=== PATIENT | female | born 1995 | race Caucasian/White ===

== ENCOUNTER 2025-05-28 15:07 | Emergency (ER) | payer SELFPAY ==
[2025-05-28 15:15] VITALS: BP 119/71; PULSE 91; RESP 16; TEMP 36.9; O2SAT 100; BMI 25.7
--- NOTE | 2025-05-28 15:19 | DI.RAD.S_ITS ---
PROCEDURE: XR FOOT RT MIN 3V INDICATIONS: injury/pain/bruising TECHNIQUE: 3 views of the foot were acquired. COMPARISON: None. FINDINGS: Bones: No fractures or dislocations. No suspicious bony lesions. Soft tissues: Distal soft tissue swelling is seen. IMPRESSION: Soft tissue swelling is seen, without an acute bony abnormality seen by plain film. If there is point tenderness (or other clinical suspicion for a fracture not seen on these images) then a dedicated CT or a short-term followup plain film series could be considered for further evaluation, as clinically appropriate. Dictated by: Cesar Martinez M.D. on 05/28/2025 at 14:58 Approved by: Cesar Martinez M.D. on 05/28/2025 at 14:58
[2025-05-28] MEDS: IBUPROFEN 400 MG TABLET 800 MG PO (15:52)
--- NOTE | 2025-05-28 16:09 | ED.LOWEXIN ---
HPI - Extremity Injury (Lower) <Mitchell Zimmer PA-C - Last Filed: 05/28/25 16:19> General Chief Complaint: Extremity Injury, Lower Stated Complaint: Rt foot ankle crushed Time Seen by Provider: 05/28/25 15:48 Source: patient Mode of arrival: Wheelchair History of Present Illness HPI Narrative: 30-year-old female presents to the ED with a right foot injury sustained just prior to arrival. Patient accidentally dropped a gate on a trailer that fell on the top of her right foot. Patient is complaining of pain at the site of the injury, bruising. No numbness, tingling, weakness. Patient is able to bear weight and walk. Related Data Allergies Allergy/AdvReac Type Severity Reaction Status Date / Time No Known Drug Allergies Allergy Verified 05/28/25 15:15 Review of Systems <Mitchell Zimmer PA-C - Last Filed: 05/28/25 16:19> Constitutional Constitutional: Denies chills, Denies fatigue, Denies fever(s), Denies frequent falls, Denies lethargy and Denies weakness Eyes Eyes: Denies change in vision, Denies eye discharge, Denies irritation and Denies loss of vision ENT Ears, Nose, Mouth, and Throat: Denies change in voice, Denies dizziness, Denies neck pain, Denies sore throat and Denies throat swelling Cardiovascular Cardiovascular: Denies chest pain, Denies irregular heart rhythm, Denies lightheadedness, Denies palpitations, Denies dyspnea, Denies dyspnea on exertion and Denies orthopnea Respiratory Respiratory: Denies cough, Denies dyspnea, Denies dyspnea on exertion and Denies wheezing Gastrointestinal Gastrointestinal: Denies abdominal pain, Denies change in bowel habits, Denies diarrhea, Denies nausea and Denies vomiting Musculoskeletal Musculoskeletal: Denies neck pain and Denies numbness Comments: Right foot pain, bruising Integumentary/Breasts Skin/Breast: Denies pruritus, Denies erythema, Denies rash and Denies wounds Neurologic Neurologic: Denies behavioral changes, Denies confusion, Denies dizziness, Denies frequent falls, Denies loss of vision, Denies numbness and Denies weakness Psychiatric Psychiatric: Denies anxiety, Denies behavioral changes, Denies confusion, Denies depression, Denies homicidal ideation and Denies suicidal ideation Endocrine Endocrine: Denies fatigue, Denies flushing and Denies palpitations Hematologic/Lymphatic Hematologic/Lymphatic: Denies easy bruising Allergic/Immunologic Allergic/Immunologic: Denies urticaria, Denies throat swelling and Denies wheezing Exam <Mitchell Zimmer PA-C - Last Filed: 05/28/25 16:19> Narrative Exam Narrative: Const General:?cooperative, healthy appearing and comfortable [facility] Head:?normal to inspection Ears:?hearing grossly normal bilaterally Nose:?external nose normal Face and sinus:?normal facial exam and sinuses nontender Mouth:?oral mucosae normal Throat:?posterior oropharynx normal Eyes General:?appearance normal, both eyes and all related structures Neck Neck:?normal visual inspection and no lymphadenopathy noted Resp Effort & Inspection:?normal respiratory effort Auscultation:?clear to auscultation bilaterally Cardio Rate:?regular rate Rhythm:?regular rhythm Musculoskeletal There is bruising and tenderness to palpation on the dorsal aspect of the right foot, just proximal to the 1st metatarsal. Strength and sensation is intact. Full range of motion. Patient able to bear weight and walk. Neurovascularly intact. Neuro General:?patient alert, patient awake and patient oriented x3 Initial Vital Signs Initial Vital Signs: Vital Signs Temperature 98.5 F 05/28/25 15:15 Pulse Rate 91 H 05/28/25 15:15 Respiratory Rate 16 05/28/25 15:15 Blood Pressure 119/71 05/28/25 15:15 Pulse Oximetry 100 05/28/25 15:15 Oxygen Delivery Method Room Air 05/28/25 15:15 <Loki Raza MD - Last Filed: 05/28/25 19:14> Initial Vital Signs Initial Vital Signs: Vital Signs Temperature 98.5 F 05/28/25 15:15 Pulse Rate 91 H 05/28/25 15:15 Respiratory Rate 16 05/28/25 15:15 Blood Pressure 119/71 05/28/25 15:15 Pulse Oximetry 100 05/28/25 15:15 Oxygen Delivery Method Room Air 05/28/25 15:15 Course <Mitchell Zimmer PA-C - Last Filed: 05/28/25 16:19> Orders Ordered: ED Orders 05/28/25 15:19 XR foot RT min 3V Stat Discontinued Medications Ibuprofen (Ibuprofen 400 Mg Tablet) 800 mg PO NOW ONE Stop: 05/28/25 15:50 Last Admin: 05/28/25 15:52 Dose: 800 mg Documented By: TESS Vital Signs Vital signs: Vital Signs - 8 hr 05/28/25 15:15 05/28/25 16:19 Temperature 98.5 F Pulse Rate 91 H 88 Respiratory Rate 16 16 Blood Pressure 119/71 118/71 Pulse Oximetry 100 100 Oxygen Delivery Method Room Air Room Air <Loki Raza MD - Last Filed: 05/28/25 19:14> Orders Ordered: ED Orders 05/28/25 15:19 XR foot RT min 3V Stat Discontinued Medications Ibuprofen (Ibuprofen 400 Mg Tablet) 800 mg PO NOW ONE Stop: 05/28/25 15:50 Last Admin: 05/28/25 15:52 Dose: 800 mg Documented By: TESS Vital Signs Vital signs: Vital Signs - 8 hr 05/28/25 15:15 05/28/25 16:19 Temperature 98.5 F Pulse Rate 91 H 88 Respiratory Rate 16 16 Blood Pressure 119/71 118/71 Pulse Oximetry 100 100 Oxygen Delivery Method Room Air Room Air MDM - Extremity Injury (Lower) <Mitchell Zimmer PA-C - Last Filed: 05/28/25 16:19> MDM Narrative Medical decision making narrative: 30-year-old female presents to the ED with a right foot injury sustained just prior to arrival. X-ray was obtained to rule out fracture/dislocation. X-ray shows soft tissue swelling, without an acute bony abnormality. Discussed findings with patient. Recommend supportive care with Tylenol, ibuprofen. Recommend follow-up with PCP as soon as possible. ED return precautions discussed with patient. Patient verbalized understanding. Medical records reviewed: Yes <Loki Raza MD - Last Filed: 05/28/25 19:14> MDM Narrative Medical decision making narrative: 30-year-old female presents to the ED with a right foot injury sustained just prior to arrival. X-ray was obtained to rule out fracture/dislocation. X-ray shows soft tissue swelling, without an acute bony abnormality. Discussed findings with patient. Recommend supportive care with Tylenol, ibuprofen. Recommend follow-up with PCP as soon as possible. ED return precautions discussed with patient. Patient verbalized understanding. Medical records reviewed: Yes I was available for consult but did not actually see the patient. Discharge Plan Departure Patient Disposition: Home Clinical Impression: Foot injury Qualifiers: Encounter type: initial encounter Laterality: right Qualified Code(s): S99.921A - Unspecified injury of right foot, initial encounter Instructions: DI for Foot Sprain Activity Restrictions/Additional Instructions: You were evaluated in the emergency department today for a foot injury. The x-ray did not show any fractures or dislocations. It appears that you have a sprain of the foot from the injury. You were given a dose of ibuprofen in the ED. You may continue taking ibuprofen and Tylenol at home. You may apply an Javid wrap for comfort. Please follow-up with your PCP as soon as possible. Return to the ED if you have worsening symptoms, numbness, tingling, weakness. Stand Alone Forms: Patient Portal/API
[2025-05-28 16:19] VITALS: BP 118/71; PULSE 88; RESP 16; O2SAT 100
== END 2025-05-28 16:20 | disposition home or self-care (01) ==
PROVIDERS: Emergency Provider Student in an Organized Health Care Education/Training Program
DX: S99.921A Unspecified injury of right foot, initial encounter (principal); X58.XXXA Exposure to other specified factors, initial encounter
CPT/HCPCS: 73630; 99283